=== PATIENT | male | born 1960 | race Caucasian/White ===

== ENCOUNTER 2021-03-15 06:25 | Day surgery (SDC) | payer OTHER ==
[2021-03-15] MEDS ORDERED: Sodium Chloride 0.9% 1,000 ML IV SCH (07:00)
[2021-03-15] MEDS ORDERED: Propofol 200 MG/20 ML SDV ONE (07:07)
[2021-03-15] MEDS ORDERED: Midazolam 1 MG/ML 2 ML SDV ONE (07:08)
[2021-03-15] MEDS ORDERED: fentaNYL 100 MCG/2 ML SDV ONE (07:08)
--- NOTE | 2021-03-15 14:19 | OR ---
DATE OF PROCEDURE: 03/15/2021 SURGEON: Jeevan Garcia MD PROCEDURES PERFORMED: 1. Esophagogastroduodenoscopy. 2. Colonoscopy. FINDINGS: 1. Mild inflammation in the gastroesophageal junction concerning for reflux disease. 2. Sigmoid colon, approximately 5 mm, completely removed using cold biopsy forceps. COMPLICATIONS: None. TEST ARCHITECT: None. ANESTHESIA: MAC. PREOPERATIVE DIAGNOSIS: Dysphagia/screening colonoscopy. POSTOPERATIVE DIAGNOSIS: Dysphagia/screening colonoscopy. RISKS: Risks, benefits, alternatives, and limitations including, but not limited to infection, bleeding, perforation, false positives, and false negatives were explained to the patient who wished to proceed. PROCEDURE IN DETAIL: The patient was placed in the left lateral decubitus position. The EGD scope was introduced and advanced atraumatically to the second part of the duodenum. No evidence of duodenitis or ulceration was noted. Within the stomach itself, there was no gastritis. No ulceration. The GE junction showed some asymmetrical Z-line. This was biopsied in all 4 quadrants using cold biopsy forceps. The air was removed from the stomach. The esophagus was inspected without abnormality. A digital rectal exam was performed next. The colonoscope was advanced atraumatically to the ileocecal valve. A photo was taken. The scope was brought back through the ascending, transverse, and descending colon and retroflexed. No evidence of old or new blood. Within the sigmoid colon, the aforementioned polyp was identified and completely removed. No abnormalities on retroflex. Greater than 8 minutes was spent on removing the scope. The patient tolerated the procedure well. The prep was acceptable. Approximately 95% of the luminal surface could be seen. Jeevan Garcia MD /[id number]
== END 2021-03-15 09:31 | disposition home or self-care (01) ==
LOC: JP.SDS 06:25
PROVIDERS: ATTEND Surgery
DX: D12.5 Benign neoplasm of sigmoid colon (principal); K21.00 Gastro-esophageal reflux disease with esophagitis, without bleeding; I10 Essential (primary) hypertension; E66.9 Obesity, unspecified; Z68.28 Body mass index [BMI] 28.0-28.9, adult; Z86.010 Personal history of colon polyps
CPT/HCPCS: 43239; 45380; 88305; J2250; J2704; J3010; J7030